=== PATIENT | male | born 1985 | race Caucasian/White ===

== ENCOUNTER 2025-07-05 08:29 | Outpatient (CLI) | payer BC | END 2025-07-05 08:30 | disposition home or self-care (01) | LOC: CSHSLEEP 08:29 | PROVIDERS: ATTEND Family Medicine | DX: G47.33 Obstructive sleep apnea (adult) (pediatric) (principal); G47.10 Hypersomnia, unspecified; R53.83 Other fatigue; K21.9 Gastro-esophageal reflux disease without esophagitis; E66.9 Obesity, unspecified; Z68.41 Body mass index [BMI] 40.0-44.9, adult; R06.83 Snoring; G47.00 Insomnia, unspecified | CPT/HCPCS: 95800 ==

== ENCOUNTER 2025-09-26 08:55 | Outpatient (CLI) | payer BC | END 2025-09-26 08:56 | disposition home or self-care (01) | LOC: CSHSLEEP 08:55 | PROVIDERS: ATTEND Family Medicine | DX: G47.33 Obstructive sleep apnea (adult) (pediatric) (principal); G47.10 Hypersomnia, unspecified; R53.83 Other fatigue; K21.9 Gastro-esophageal reflux disease without esophagitis; E66.9 Obesity, unspecified; Z68.41 Body mass index [BMI] 40.0-44.9, adult; R06.83 Snoring; G47.00 Insomnia, unspecified | CPT/HCPCS: 95811 ==

== ENCOUNTER 2025-10-24 09:55 | Outpatient (CLI) | payer BC | END 2025-10-24 09:56 | disposition home or self-care (01) | LOC: CSHDTY/OP 09:55 | PROVIDERS: ATTEND Nurse Practitioner Family | DX: Z71.3 Dietary counseling and surveillance (principal) | CPT/HCPCS: 97802 ==